=== PATIENT | male | born 1980 | race Caucasian/White ===

== ENCOUNTER 2023-10-26 00:09 | Emergency (ER) | payer OTHER, SELFPAY ==
[2023-10-26 00:12] VITALS: BP 151/90; PULSE 75; RESP 20; TEMP 36.9; O2SAT 100
[2023-10-26 02:27] VITALS: BP 160/93; PULSE 98; RESP 18; O2SAT 98
--- NOTE | 2023-10-26 05:18 | ED.GENADULT ---
HPI - General Adult General Chief complaint: Unspecified Stated complaint: rectal pain Time Seen by Provider: 10/26/23 04:48 Source: patient Limitations: no limitations History of Present Illness HPI narrative: Patient is a 43-year-old male presents to the emergency department complaining of discomfort in his anal region. Patient states with the past 1-1.5 months he has been having a burning sensation down the addition itchy nose any talk to his general surgeon who has an appointment with on and was told he should come to the emergency department it is not getting better so I did. Patient admits to trying preparation H suppositories and hydrocortisone. Patient admits to history of constipation and has been only slightly constipated as of late. Patient admits to using stool softeners regularly. Patient admits to a small amount of blood on the toilet paper when he wipes and otherwise no bleeding. Patient denies any recent injuries. Patient denies fever, vomiting, diarrhea, rash, foreign bodies inserted into the rectum, anal intercourse, dysuria, difficulty urinating, abdominal pain. Patient admits to a history of hemorrhoids. Patient denies use of blood thinners. Patient denies weight loss. Patient denies NSAID use. Patient has not had colonoscopies in the past. Related Data Allergies Allergy/AdvReac Type Severity Reaction Status Date / Time codeine AdvReac Mild VOMITING Verified 10/26/23 02:29 Review of Systems Review of Systems: A 10 system review of systems was completed on the patient and is negative except for what is stated in the HPI. Nursing and ancillary documentation was reviewed. [facility] Family History Family History (Updated 10/31/13 @ 09:53 by DOCTOR UNKNOWN) Other Diabetes mellitus Hypertension Social History Social History Smoking status: Heavy tobacco smoker Second hand tobacco smoke exposure: Yes Alcohol intake: current Comments At time of signature, I have reviewed and agree with nursing past medical, surgical, social and family history unless otherwise noted. Please see the nursing chart for further information. There is no relevant family history pertinent to the presenting complaint. Exam Narrative: CONST: No acute distress. Well nourished. HENMT: Head is normocephalic and atraumatic. Moist mucous membranes. No posterior oropharynx erythema. EYES: No conjunctival icterus, injection, or pallor. PERRL. NECK: No meningeal signs. RESP: Able to speak in full sentences. Normal respiratory effort. CTAB. CARDIO: Regular rate. Regular rhythm. 2+ DP and radial pulses bilaterally. GI: Nondistended. No tenderness to palpation. Soft. : No CVA tenderness to palpation. SKIN: No rashes or lesions noted on exposed skin. Digital rectal examination with normal anal tone, no blood, no palpable masses or hemorrhoids. Small external hemorrhoid without thrombosis. Small anal fissure present at the right 8 o'clock position. NEURO: Oriented x3. Moves all extremities. EXTREM: No pedal edema. PSYCH: Normal affect. Course Vital Signs Vital signs: Vital Signs Temperature 98.5 F 10/26/23 00:12 Pulse Rate 75 10/26/23 00:12 Respiratory Rate 20 10/26/23 00:12 Blood Pressure 151/90 H 10/26/23 00:12 Pulse Oximetry 100 10/26/23 00:12 Oxygen Delivery Room Air 10/26/23 00:12 Temperature 98.5 F 10/26/23 00:12 Pulse Rate 98 10/26/23 02:27 Respiratory Rate 18 10/26/23 02:27 Blood Pressure 160/93 H 10/26/23 02:27 Pulse Oximetry 98 10/26/23 02:27 Oxygen Delivery Room Air 10/26/23 00:12 Medical Decision Making MDM Narrative Medical decision making narrative: Patient presents with the above complaint. Initial vitals are remarkable for no significant abnormalities. Examination as noted above. Patient was reassessed at the bedside. No changes in physical exam. Patient is in no acute distress. The patient has remained stable throughout t
== END 2023-10-26 05:40 | disposition home or self-care (01) ==
PROVIDERS: Emergency Provider Student in an Organized Health Care Education/Training Program
DX: K62.89 Other specified diseases of anus and rectum (principal)
CPT/HCPCS: 99283